=== PATIENT | male | born 1960 | race Caucasian/White ===

== ENCOUNTER 2020-02-12 18:15 | Emergency (ER) | payer OTHER ==
[~2020-02-12] VITALS: Ht 157.5 cm; Wt 70.3 kg
[2020-02-12] MEDS ORDERED: LISINOPRIL20 MG (18:45)
[2020-02-12] MEDS ORDERED: HYDROCHLOROTH12.5 MG (18:46)
[2020-02-12] MEDS ORDERED: BACTRIM DS TAB1 EACH PO (19:38)
== END 2020-02-12 19:47 | disposition home or self-care (01) ==
LOC: ED 18:15
DX: K40.90 Unilateral inguinal hernia, without obstruction or gangrene, not specified as recurrent (principal); R22.32 Localized swelling, mass and lump, left upper limb; I10 Essential (primary) hypertension; Z88.5 Allergy status to narcotic agent; Z79.899 Other long term (current) drug therapy
CPT/HCPCS: 99283

== ENCOUNTER 2023-07-13 15:19 | Emergency (ER) | payer MEDICARE, OTHER ==
[~2023-07-13] VITALS: Ht 157.5 cm; Wt 68.0 kg
[~2023-07-13 15:19] MED LIST: BACTRIM DS TAB1 EACH PO; HYDROCHLOROTH12.5 MG; LISINOPRIL20 MG
--- OUTSIDE RECORDS SUMMARY | 2023-07-13 15:20 | XMS ---
PreManage Notification: NICHOLAS DEL CASTILLO Security Licensed Nursing Assistant Events No recent Security Events currently on file CRITERIA MET - 6 ED Visits in 6 Months CARE PROVIDERS -Reid- Dentist: [facility] PHONE: [phone] [facility], [facility]/[place]: [facility] Current MEDICAL PHONE: [phone] [facility] [place] [facility] Current PHONE: [phone] Carmencita has no Care Guidelines for this patient. E.D. VISIT COUNT (12 MO.) 5 [facility] 1 [facility] TOTAL 6 NOTE: Visits indicate total known visits. ED/UCC VISIT TRACKING (12 MO.) 07/13/2023 15:19 [facility] [place] TYPE: Emergency COMPLAINT: - SHORTNESS OF BREATH 06/12/2023 08:50 [facility] [place] TYPE: Emergency DIAGNOSES: - Personal history of (healed) traumatic fracture - Pneumonia, unspecified organism - Unspecified acute conjunctivitis, bilateral - SHORTNESS OF BREATH WEAKNESS 04/16/2023 09:24 [employer] [place] TYPE: Emergency DIAGNOSES: - Multiple fractures of ribs, right side, subsequent encounter for fracture with routine healing - shortness of breath 04/13/2023 19:36 [employer] [facility] DIAGNOSES: - Multiple fractures of ribs, right side, subsequent encounter for fracture with routine healing - Other chest pain - shortness of breath 04/04/2023 15:21 [employer] [facility] DIAGNOSES: - Multiple fractures of ribs, right side, initial encounter for closed fracture - Traumatic pneumothorax, initial encounter - shortness of breath 01/24/2023 15:34 [facility] [place] TYPE: Emergency DIAGNOSES: - Sprain of unspecified site of right knee, initial encounter - Synovial cyst of popliteal space [Beck[place]], right knee - Leg pain INPATIENT VISIT TRACKING (12 MO.) 04/04/2023 15:21 [facility] [place] TYPE: Surgery DIAGNOSES: - Multiple fractures of ribs, right side, initial encounter for closed fracture - Traumatic pneumothorax, initial encounter [email or web address]
[2023-07-13 15:36] LABS: BASOPHILS 0.7 % (0-2); EOSINOPHILS 1.2 % (0-6); HEMATOCRIT 42.7 % (35.0-50.0); HEMOGLOBIN 13.9 g/dL (12.0-18.0); LYMPHOCYTES 14.3 % (24-44); MCH 29.3 (27-36); MCHC 32.6 g/dl (30-36); MCV 89.8 fl (81-99); NEUTROPHILS 77.8 % (39-80); PLATELET COUNT 315 K/uL (140-440); RBC 4.75 M/ul (4.3-5.7); RDW 14.2 (10.5-15.0)
[2023-07-13 15:55] LABS: ALBUMIN 3.2 g/dL (3.4-5.0); ALBUMIN/GLOBULIN RATIO 0.8 (1.1-2.4); ANION GAP 11.9 (7-21); BILIRUBIN, TOTAL 0.3 ng/dL (0.2-1.0); BUN/CREATININE RATIO 17.74 (6.0-28.6); CALCIUM 9.4 mg/dL (8.5-10.1); CREATININE, SERUM 1.24 mg/dL (0.70-1.30); POTASSIUM 3.9 mmol/L (3.5-5.1); PROTEIN, TOTAL 7.2 g/dL (6.4-8.2)
[2023-07-13 17:38] LABS: AMPHETAMINES, URINE POSITIVE (NEGATIVE); BARBITURATES, URINE NEGATIVE (NEGATIVE); BENZODIAZEPINE, URINE NEGATIVE (NEGATIVE); BUPRENORPHINE, URINE NEGATIVE (NEGATIVE); CANNABINOID, URINE POSITIVE (NEGATIVE); COCAINE, URINE NEGATIVE (NEGATIVE); ECSTASY, URINE NEGATIVE (NEGATIVE); FENTANYL, URINE POSITIVE (NEGATIVE); METHADONE, URINE NEGATIVE (NEGATIVE); OPIATES, URINE NEGATIVE (NEGATIVE); OXYCODONE, URINE NEGATIVE (NEGATIVE); PHENCYCLIDINE, URINE NEGATIVE (NEGATIVE)
--- NOTE | 2023-07-14 11:57 | EKG ---
[facility] [address] [place] [address] Signed Normal sinus rhythm Minimal voltage criteria for LVH, may be normal variant ( R in aVL ) Nonspecific T wave abnormality Abnormal ECG No previous ECGs available Confirmed by Hai Mora MD ([id number]) on 07/14/2023 11:56:47 AM Electronically Signed By: HAI MORA 07/14/23 1157 PATIENT NAME: NICHOLAS DEL CASTILLO Electrocardiogram DATE OF : 56 PHYSICIAN: HAI MORA REPORT #: [id number] REPORT IS CONFIDENTIAL AND NOT TO BE RELEASED WITHOUT AUTHORIZATION
== END 2023-07-13 17:15 | disposition left against medical advice (07) ==
LOC: ED 15:19
PROVIDERS: Emergency Medicine
DX: F15.10 Other stimulant abuse, uncomplicated (principal); F11.20 Opioid dependence, uncomplicated; I10 Essential (primary) hypertension; Z88.5 Allergy status to narcotic agent; Z79.899 Other long term (current) drug therapy; Z53.29 Procedure and treatment not carried out because of patient's decision for other reasons
CPT/HCPCS: 36415; 71045; 80053; 80307; 84484; 85025; 93005; 93010; 99285-25; G0480